=== PATIENT | female | born 1990 | race Caucasian/White ===

== ENCOUNTER 2017-02-21 11:38 | Emergency (ER) | payer OTHER ==
[~2017-02-21] VITALS: Ht 147.3 cm; Wt 56.7 kg
[2017-02-21 11:44] VITALS: BP 124/84
--- NOTE | 2017-02-21 13:40 | RADIOLOGY REPORT ---
EXAMINATION: LEFT SHOULDER LEFT HUMERUS CLINICAL INFORMATION: Trauma COMPARISON: None TECHNIQUE: Left shoulder, 4 views. Left humerus, 2 views. FINDINGS: Left shoulder: No acute bone, joint or soft tissue abnormality. Clear left lung. Left humerus: No acute bone, joint or soft tissue abnormality. Visualized left thorax normal. IMPRESSION: No fracture or dislocation.
[2017-02-21] MEDS ORDERED: CYCLOBENZAPRINE5 M2 PO (15:35)
[2017-02-21] MEDS ORDERED: IBUPROFEN800 M1 PO (15:35)
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
== END 2017-02-21 15:44 ==
LOC: ERH 11:38
DX: S16.1XXA Strain of muscle, fascia and tendon at neck level, initial encounter (principal); M25.512 Pain in left shoulder; V43.52XA Car driver injured in collision with other type car in traffic accident, initial encounter; Y92.488 Other paved roadways as the place of occurrence of the external cause
CPT/HCPCS: 73030-LT; 73060-LT; 81025